=== PATIENT | male | born 1980 | race Caucasian/White ===

== ENCOUNTER 2016-08-20 16:47 | Emergency (ER) | payer SELFPAY ==
[~2016-08-20] VITALS: Ht 320 cm; Wt 86.2 kg
[~2016-08-20 16:47] MED LIST: ACET1TAB33 PO; ALBU18HF IH; AMOX875T PO; CYCL-331 PO; GABA800T2 PO; HYDR-971 PO; IBUP600T16 PO; IBUP800T19 PO; METH4TAB2 PO; PENI500T PO; PRED20TA PO
[2016-08-20 16:55] VITALS: BP 112/62
--- NOTE | 2016-08-20 17:00 | PHYS DOC ---
General Chief Complaint: INSECT BITE Stated Complaint: INSECT BITE Time Seen by MD: 16:57 Source: patient Exam Limitations: no limitations Problems: History of Present Illness Initial Comments Patient is a 35-year-old male who comes in the ED complaining of possible bug bite. Patient states that he noticed an itchy bump at his right flank last night. Today there was increased pain redness and swelling at the area, there is redness spreading jovon-laterally extending to mid clavicular. He denies actually seeing any insects he denies any tick bites no fever chills sweats or myalgias nausea vomiting or diarrhea. No pre-arrival treatment patient smokes cigarettes and has history of methamphetamine addiction but denies recent use. States his tetanus is up-to-date. Timing/Duration: 24 hours, getting worse Severity: moderate Modifying Factors: improves with cold therapy, worse with movement Associated Symptoms: rash Allergies: Coded Allergies: tramadol (Verified Allergy, Severe, SEIZURES, 12/17/15) diphenhydramine (Verified Allergy, Intermediate, 08/18/14) seizure Past Medical History Medical History: asthma, seizure, other (dental caries, methamphetamine addiction) Surgical History: noncontributory (hernia), other Family History Significant Family History: no pertinent family hx Social History Smoker: cigarettes Alcohol: occasionally Drugs: other (history of methamphetamine use) Review of Systems Constitutional: denies chills, denies diaphoresis, denies fever, denies malaise , denies weakness Respiratory: denies cough, denies shortness of breath Cardiovascular: denies chest pain, denies palpitations Gastrointestinal: denies abdominal pain, denies nausea, denies vomiting Musculoskeletal: denies back pain, denies joint swelling, denies neck pain Skin: see HPI Psychiatric/Neurological: denies headache, denies numbness, denies paresthesia Physical Exam General Appearance: no apparent distress Eyes: bilateral eye normal inspection, bilateral eye PERRL, bilateral eye EOMI Ear, Nose, Throat: hearing grossly normal, normal ENT inspection Neck: non-tender, supple Respiratory: normal breath sounds, no respiratory distress Cardiovascular: normal peripheral pulses, regular rate, rhythm Gastrointestinal: non tender, soft Back: no CVA tenderness, no vertebral tenderness Extremities: non-tender, normal inspection Neurologic/Psychiatric: marketing clerk II-XII nml as tested, no motor/sensory deficits, alert, normal mood/affect, oriented x 3 Skin: warm/dry (there is a 4 cm area of induration and erythema located at the right flank with a central scabbed ulceration approximately 0.5 cm. Red streaking extending anterolaterally to the midclavicular line there is associated warmth and tenderness there is no active bleeding or subcutaneous masses.) Orders, Labs, Meds I discussed the treatment plan as well as smoking cessation. Patient expressed agreement and understanding of the treatment plan. Departure Time of Disposition: 17:12 Disposition: HOME, SELF-CARE Diagnosis: Cellulitis, likely MRSA, tobaccoism Condition: GOOD Patient Instructions: Cellulitis, [id number], MRSA Overview, Smokeless Tobacco Use Additional Instructions: Stop smoking seek medical assistance if necessary. Off work through August 24 note given. Warm compresses to the affected area 20 minutes at a time 4-6 times daily. [id number] ibuprofen for baseline discomfort. Prescription: Bactrim DS 2010, Bactroban ointment, [place] 5 mg quantity 15 Take medications with food to avoid nausea and vomiting. Follow-up with your doctor next week for a wound check. Return to the ED with new or changing symptoms. PERFECTO LUX DO Aug 20, 2016 17:00
== END 2016-08-20 17:25 | disposition home or self-care (01) ==
LOC: ER 16:47
DX: L03.311 Cellulitis of abdominal wall (principal); J45.909 Unspecified asthma, uncomplicated; F19.20 Other psychoactive substance dependence, uncomplicated; F17.210 Nicotine dependence, cigarettes, uncomplicated; F15.10 Other stimulant abuse, uncomplicated; Z88.6 Allergy status to analgesic agent; Z88.8 Allergy status to other drugs, medicaments and biological substances
CPT/HCPCS: 99283

== ENCOUNTER 2016-10-03 09:49 | Emergency (ER) | payer SELFPAY ==
[~2016-10-03] VITALS: Ht 167.6 cm; Wt 83.9 kg
[2016-10-03 09:50] VITALS: BP 127/84
[2016-10-03] MEDS ORDERED: AMOX-260 PO (10:09)
--- NOTE | 2016-10-03 10:09 | PHYS DOC ---
Past History Past Medical History: Asthma, Seizure, Other Past Surgical History: Other Smoking: Cigarettes, Less than 1pk/day Alcohol Use: Occasionally Drug Use: None, Other Adult General Chief Complaint Chief Complaint: dental pain HPI HPI Patient is a 36-year-old male with a complaint of dental pain since yesterday. The patient has multiple bad teeth, he has had some dental work done in the past , but it's been a long time. He states he knows he needs to have several teeth pulled. He has had pain on the right mandibular teeth since yesterday. He was not able to sleep last night due to the pain. Denies fever or chills. He has pain under his jaw on the right also. Review of Systems Review of Systems Constitutional: Denies fever or chills [] HENT: As in history of present illness Allergies Allergies Allergies Coded Allergies Type Severity Reaction Last Updated Verified tramadol Allergy Severe SEIZURES 12/17/15 Yes diphenhydramine Allergy Intermediate 08/18/14 Yes Physical Exam Physical Exam Constitutional: Well developed, well nourished, no acute distress, non-toxic appearance. Alert, ambulatory, handling his secretions without difficulty, no abnormality of the voice. HENT: Normocephalic, atraumatic, bilateral external ears normal, nose normal. Lips and tongue are normal. Oropharynx moist. There are extensive areas of dental decay, fractured teeth, throughout the patient's mouth. There is some mild swelling and redness of the gingiva on the right mandibular area but no evidence of periapical abscess, no drainage. No swelling under the tongue. Eyes: conjunctiva normal, no discharge. [] Neck: Normal range of motion, no stridor. Mild tenderness to palpation submandibular and anterior cervical on the right without significant lymphadenopathy or palpable masses. Skin: Warm, dry, no erythema, no rash. [] Extremities: No tenderness, no cyanosis, no clubbing, ROM intact, no edema. [] Neurologic: Alert and oriented X 3, normal motor function, normal sensory function, no focal deficits noted. [] EKG EKG [] Radiology/Procedures Radiology/Procedures [] Course & Med Decision Making Course & Med Decision Making Pertinent Labs and Imaging studies reviewed. (See chart for details) 36-year-old male who has been seen multiple times in the past for dental pain presents with acute dental pain for 2 days. He has extensive dental caries and many fractured teeth but his right mandibular first and second molar appear to be the source of his main pain today, there is no evidence of periapical abscess or other acute abnormality. We will treat him with antibiotics and I urged him to see a dentist as soon as possible. [] Dragon Disclaimer Dragon Disclaimer This chart was dictated in whole or in part using Voice Recognition software in a busy, high-work load, and often noisy Emergency Department environment. It may contain unintended and wholly unrecognized errors or omissions. Departure Departure: Impression: Primary Impression: Pain due to dental caries Referrals: PCPMANE (PCP) Patient Instructions: Dental Abscess Additional Instructions: As we discussed, it is important to see a dentist as soon as possible because your teeth are only going to get worse and they need to be taken care of. Scripts Amoxicillin (AMOXICILLIN) 250 Mg Capsule 1 CAP PO TID, #30 CAP Prov: MEENAKSHI HICKMAN MD 10/03/16 MEENAKSHI HICKMAN MD Oct 03, 2016 10:09
== END 2016-10-03 10:10 | disposition home or self-care (01) ==
LOC: ER 09:49
DX: K02.9 Dental caries, unspecified (principal); J45.909 Unspecified asthma, uncomplicated; F17.210 Nicotine dependence, cigarettes, uncomplicated; Z88.6 Allergy status to analgesic agent; Z88.8 Allergy status to other drugs, medicaments and biological substances
CPT/HCPCS: 99282; 99283

== ENCOUNTER 2016-12-02 08:16 | Emergency (ER) | payer SELFPAY ==
[~2016-12-02] VITALS: Ht 167.6 cm; Wt 83.9 kg
[~2016-12-02 08:16] MED LIST changes: +AMOX-260 PO
[2016-12-02 09:31] VITALS: BP 106/76
== END 2016-12-02 09:38 | disposition home or self-care (01) ==
LOC: ER 08:16
DX: S50.311A Abrasion of right elbow, initial encounter (principal); Z53.21 Procedure and treatment not carried out due to patient leaving prior to being seen by health care provider; W01.0XXA Fall on same level from slipping, tripping and stumbling without subsequent striking against object, initial encounter; Y93.89 Activity, other specified; Y99.8 Other external cause status; Y92.89 Other specified places as the place of occurrence of the external cause

== ENCOUNTER 2017-07-14 02:09 | Emergency (ER) | payer SELFPAY ==
[~2017-07-14] VITALS: Ht 172.7 cm; Wt 113.4 kg
[2017-07-14 02:24] VITALS: BP 150/109
[2017-07-14] MEDS ORDERED: AMOX1TAB61 PO (02:29)
[2017-07-14] MEDS ORDERED: HYDR-971 PO (02:29)
[2017-07-14] MEDS ORDERED: KETOROLAC 30 MG/ML VIAL. IM ONE (02:45)
--- NOTE | 2017-07-14 02:52 | PHYS DOC ---
Past History Past Medical History: No Pertinent History Past Surgical History: Other Smoking: Cigarettes, Less than 1pk/day Alcohol Use: None Drug Use: None Adult General Chief Complaint Chief Complaint: DENTAL PROBLEM HPI HPI Patient is a 36-year-old male with dental pain severe dull right lower needs to have teeth pulled. No fever got worse tonight couldn't sleep came to ER. Review of Systems Review of Systems Constitutional: Denies fever or chills [] Current Medications Current Medications Current Medications Medications (Trade) Dose Ordered Sig/Ulises Start Time Stop Time Status Last Admin Dose Admin Ketorolac Tromethamine (Toradol) 30 mg 1X ONCE 07/14/17 02:45 07/14/17 02:46 Allergies Allergies Allergies Coded Allergies Type Severity Reaction Last Updated Verified tramadol Allergy Severe SEIZURES 12/17/15 Yes diphenhydramine Allergy Intermediate 08/18/14 Yes Physical Exam Physical Exam Constitutional: Well developed, well nourished, no acute distress, non-toxic appearance. [] HENT: Normocephalic, atraumatic, bilateral external ears normal, oropharynx moist, no oral exudates, nose normal. Poor dentition including multiple cracked one down teeth in the right lower mandible no periapical abscess no facial swelling no lymphadenopathy airways patent Neurologic: Alert and oriented X 3, normal motor function, normal sensory function, no focal deficits noted. [] Psychologic: Affect normal, judgement normal, mood normal. [] Current Patient Data Vital Signs Vital Signs Date Time Temp Pulse Resp B/P (MAP) Pulse Ox O2 Delivery O2 Flow Rate FiO2 07/14/17 02:24 98.3 72 18 96 Room Air Lab Results Temperature (Fahrenheit): * 98.3 degrees F (97.6-99.5) Patient Temperature * 98.3 degrees F (97.5-99.5) Temperature Source * Oral Blood Pressure Systolic * 150 mm Hg (100-140) H Blood Pressure Diastolic * 109 mm Hg (60-100) H Blood Pressure Mean * 123 mm Hg Blood Pressure Location * Right Arm Blood Pressure Source * Automatic Cuff Pulse Rate * 72 beats per minute (60-90) Pulse Assessment Method * Monitor Respiratory Rate * 18 breaths per minute (12-24) Oxygen Delivery Method * Room Air Bedside Pulse Oximetry * 96 % Treatment Prior to Arrival * No EKG EKG [] Radiology/Procedures Radiology/Procedures [] Course & Med Decision Making Course & Med Decision Making Pertinent Labs and Imaging studies reviewed. (See chart for details) []Dental pain I reviewed the case tracks he has gotten TWO RX NORCO in the last 6 weeks approximately. In the ER he received a Toradol IM injection I didn't precaution him about overuse of narcotics. I did tell him I would give him number for [facility] to get him through the next 1 days that he can see a dentist. He was given dental clinic information perception for Augmentin return impressions were reviewed no evidence of treatable abscess at this time. Dragon Disclaimer Dragon Disclaimer This electronic medical record was generated, in whole or in part, using a voice recognition dictation system. Departure Departure: Impression: Primary Impression: Poor dentition Disposition: 01 HOME, SELF-CARE Condition: IMPROVED Referrals: PCP,NO (PCP) Patient Instructions: Toothache-Brief Scripts Amoxicillin/Potassium Clav (AUGMENTIN 875-125 TABLET) 1 Each Tablet 1 TAB PO BID, #20 TAB Prov: ABDIRAHMAN GARRISON MD 07/14/17 Hydrocodone Bit/Acetaminophen (NORCO 5-325 TABLET) 1 Each Tablet 1 TAB PO BID, #4 TAB Prov: ABDIRAHMAN GARRISON MD 07/14/17 ABDIRAHMAN GARRISON MD Jul 14, 2017 02:52
== END 2017-07-14 03:05 | disposition home or self-care (01) ==
LOC: ER 02:09
DX: K08.89 Other specified disorders of teeth and supporting structures (principal); F17.210 Nicotine dependence, cigarettes, uncomplicated; Z88.6 Allergy status to analgesic agent; Z88.8 Allergy status to other drugs, medicaments and biological substances
CPT/HCPCS: 96372; 99283; J1885

== ENCOUNTER 2019-04-11 22:01 | Emergency (ER) | payer SELFPAY ==
[~2019-04-11] VITALS: Ht 172.7 cm; Wt 72.7 kg
[2019-04-11 22:01] VITALS: BP 132/80
[~2019-04-11 22:01] MED LIST changes: -ALBU18HF IH; +ALBU2.5V8 IH; +AMOX1TAB61 PO; -GABA800T2 PO; +GABA800T5 PO; +HYDR-3165 PO; -HYDR-971 PO
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
== END 2019-04-11 22:37 | disposition left against medical advice (07) ==
LOC: ER 22:01
DX: G89.29 Other chronic pain (principal); M54.6 Pain in thoracic spine; F17.210 Nicotine dependence, cigarettes, uncomplicated; Z88.8 Allergy status to other drugs, medicaments and biological substances
CPT/HCPCS: 99281

== ENCOUNTER 2019-10-25 20:08 | Emergency (ER) | payer SELFPAY ==
[~2019-10-25] VITALS: Ht 167.6 cm; Wt 84.1 kg
[2019-10-25 20:48] VITALS: BP 126/82
--- NOTE | 2019-10-25 23:00 | PHYS DOC ---
Past History Past Medical History: No Pertinent History Past Surgical History: Other Additional Past Surgical Histo: HERNIA REPAIR, DEVIATED SEPTUM Smoking: Cigarettes, Less than 1pk/day Alcohol Use: Occasionally Drug Use: Amphetamine General Adult EDM: Chief Complaint: BACK PAIN OR INJURY HPI: HPI: ".. I fell coming off porch yesterday.. hard on my butt.. my back has been killing... me...". It been two days.. and I still really hurt.. it seems to be a little more on my rt. flank area..." Patient is a 39 year old male who presents with above hx and complaints of back pain has been continuous since a slip and fall. Patient fell off landing on his gluteal area and mid back. Patient denies any problems with urination or defecation. No history of IV drug use. No history of fever or chills. No history of immunosuppression. No history of recent travel outside the [place] area. Pain in back is exacerbated by bending or twisting type movements. Pain does seem to localize more to the right at the level of T12 and L1. Does have some mild straight leg lift exacerbation pain on the right. No saddle loss. Review of Systems: Review of Systems: Constitutional: Denies fever or chills Eyes: Denies change in visual acuity HENT: Denies nasal congestion or sore throat Respiratory: Denies cough or shortness of breath Cardiovascular: Denies chest pain or edema GI: Denies abdominal pain, nausea, vomiting, bloody stools or diarrhea : Denies dysuria Musculoskeletal: Complains of persistent back pain since slip and fall 2 days ago Integument: Denies rash Neurologic: Denies headache, focal weakness or sensory changes Endocrine: Denies polyuria or polydipsia Lymphatic: Denies swollen glands Psychiatric: Denies depression or anxiety Heart Score: Risk Factors: Risk Factors: DM, Current or recent (<one month) smoker, HTN, HLP, family history of CAD, obesity. Risk Scores: Score 0 - 3: 2.5% MACE over next 6 weeks - Discharge Home Score 4 - 6: 20.3% MACE over next 6 weeks - Admit for Clinical Observation Score 7 - 10: 72.7% MACE over next 6 weeks - Early Invasive Strategies Family History: Family History: Noncontributory Current Medications: Current Meds: See nursing for home meds Allergies: Allergies: Allergies Coded Allergies Type Severity Reaction Last Updated Verified tramadol Allergy Severe SEIZURES 12/17/15 Yes diphenhydramine Allergy Intermediate 08/18/14 Yes Physical Exam: PE: Constitutional: Moderate acute distress, non-toxic appearance. [] HENT: Normocephalic, atraumatic, bilateral external ears normal, oropharynx moist, no oral exudates, nose normal. [] Eyes: PERRLA, EOMI, conjunctiva normal, no discharge. [] Neck: Normal range of motion, no tenderness, supple, no stridor. [] Cardiovascular:Heart rate regular rhythm, no murmur [] Lungs & Thorax: Bilateral breath sounds equal apex with scattered wheezes on auscultation [] Abdomen: Bowel sounds normal, soft, no tenderness, no masses, no pulsatile masses. No rebound pain. Old surgical scar. Circumcised male. No testicular tenderness. No groin sensation loss Skin: Warm, dry, no erythema, no rash. [] Back: Marked paraspinal lumbar tenderness, has right CVA tenderness. Has findings of contusion on mid back. Does have some midline tenderness at T12 and L1. Extremities: No tenderness, no cyanosis, no clubbing, ROM intact, no edema. Does have mild straight leg lift sciatica on right Neurologic: Alert and oriented X 3, moves all extremities on request, has distal sensory., no focal deficits noted. [] DTRs +2 patella and Achilles. No clonus appreciated. Psychologic: Affect anxious,, judgement normal, mood normal. [] Current Patient Data: Vital Signs: Vital Signs Date Time Temp Pulse Resp B/P (MAP) Pulse Ox O2 Delivery O2 Flow Rate FiO2 10/25/19 20:48 98.3 89 16 126/82 (97) 96 Room Air EKG: EKG: [] Radiology/Procedures: Radiology/Procedures: [][address] [address] IMAGING REPORT Signed PATIENT: SOCORRO KAMARA ACCOUNT: [id number] : 1980 LOCATION: ER AGE: 39 SEX: M EXAM STATUS: REG ER ORD. PHYSICIAN: PHAM PEDERSON MD REASON: Fall on steps yesterday PROCEDURE: CT LUMBAR SPINE WO CONTRAST PQRS Compliance Statement: One or more of the following individualized dose reduction techniques were utilized for this examination: 1. Automated exposure control 2. Adjustment of the mA and/or kV according to patient size 3. Use of iterative reconstruction technique CT LUMBAR SPINE WO CONTRAST Clinical Indication: Reason: Fall on steps yesterday / Spl. Instructions: / History: Comparison: None. TECHNIQUE: Helical CT imaging of the lumbar spine is performed without IV contrast. Findings: There is acute traumatic nondisplaced fracture of the right transverse process of T12, image 4. There is minimal grade 1 retrolisthesis of L3 on L4. The alignment is otherwise maintained. There is no disc space narrowing. There is minimal degenerative endplate spurring of L4 and L5. There is no acute vertebral body compression fracture. The sacroiliac joints are symmetric. There is no central canal stenosis or significant neural foraminal narrowing of the lumbar spine. There is small posterior disc bulge of L5/S1. Limited visualization of the retroperitoneum is unremarkable. IMPRESSION: There is acute traumatic nondisplaced fracture of the right T12 transverse process. Electronically signed by: Eder Jose MD (10/26/2019 2:10 AM) [facility] DICTATED AND SIGNED BY: EDER JOSE MD DATE: 10/26/19209 CC: PHAM PEDERSON MD; PCP,NO ~ Course & Med Decision Making: Course & Med Decision Making Pertinent Labs and Imaging studies reviewed. (See chart for details) Copy of CT clouded-reviewed by Dr. Elmore neurosurgery. Dr. Martinez's bar assistant Lili-advised Dr. Elmore felt this was a nonsurgical stable spinal fracture. Rest. Follow-up primary care. Ice packs as needed. If persistent pain schedule appointment with outpatient neurosurgery clinic. Have patient follow-up primary care. Patient take Tylenol and ibuprofen for pain for marked pain may take Vicoprofen up to 4 times a day. Take Flexeril 10 mg up to 3 times a day for marked muscle spasms. Use ice packs as needed. Allow adequate rest. Avoid excessive lifting more than 25 pounds. Must avoid constipation. Encourage patient stop smoking. Patient given Dr. Elmore-clinic phone number for follow-up if no improvement.-Patient may need further radiographic evaluation if persistent pain, MRI or even possible myelogram. However in all appearances should gradually have improvement with healing fracture. Impression: 1. Slip and fall 2. Back contusion 3. Nondisplaced acute traumatic fracture right transverse process at T12 4. Tobacco use 5. Urine drug screen positive for methamphetamine/amphetamine [] Dragon Disclaimer: Melanie Disclaimer: This electronic medical record was generated, in whole or in part, using a voice recognition dictation system. Departure Departure: Disposition: HOME/RESIDENCE PRIOR TO ADM Condition: STABLE Referrals: PCP,NO (PCP) Scripts Cyclobenzaprine Hcl (CYCLOBENZAPRINE HCL) 10 Mg Tablet 10 MG PO TID for spasms, #30 TAB Prov: PHAM PEDERSON MD 10/26/19 Hydrocodone/Ibuprofen (HYDROCODONE-IBUPROFEN 7.5-200 ) 1 Each Tablet 1 TAB PO PRN Q6HRS PRN for PAIN, #30 TAB 0 Refills Prov: PHAM PEDERSON MD 10/26/19 Justification of Admission: Justification of Admission: Justification of Admission Dx: N/A Dragon Disclaimer This chart was dictated in whole or in part using Voice Recognition software in a busy, high-work load, and often noisy Emergency Department environment. It may contain unintended and wholly unrecognized errors or omissions. PHAM PEDERSON MD Oct 25, 2019 23:00
[2019-10-25 23:19] LABS: BARBITURATES NEG (NEG); BENZODIAZEPINES NEG (NEG); CANNABINOIDS NEG (NEG); COCAINE NEG (NEG); METHADONE NEG (NEG); OPIATES NEG (NEG); PHENCYCLIDINE NEG (NEG)
[2019-10-25 23:25] LABS: AMPHETAMINE/METHAMPHETAMINE POS (NEG)
[2019-10-25] MEDS ORDERED: MORPHINE SULFATE 10 MG/ML SYRINGE. SQ ONE (23:45)
[2019-10-25] MEDS ORDERED: ORPHENADRINE CITRATE 60 MG/2 ML VIAL. IM ONE (23:45)
[2019-10-25] MEDS ORDERED: KETOROLAC 60 MG/2 ML VIAL. IM ONE (23:45)
[2019-10-26 00:01] LABS: BACTERIA,URINE 0 /HPF (0-FEW); BILIRUBIN,URINE NEG (NEG); CLARITY,URINE CLEAR; COLOR,URINE YELLOW; GLUCOSE,URINE NEG (NEG); NITRITE,URINE NEG (NEG); RBC,URINE 0 /HPF (0-2); UROBILINOGEN,URINE 0.2 mg/dL (0.2 mg/dL); WBC,URINE 0 /HPF (0-4)
--- NOTE | 2019-10-26 02:13 | RAD ---
PQRS Compliance Statement: One or more of the following individualized dose reduction techniques were utilized for this examination: 1. Automated exposure control 2. Adjustment of the mA and/or kV according to patient size 3. Use of iterative reconstruction technique CT LUMBAR SPINE WO CONTRAST Clinical Indication: Reason: Fall on steps yesterday / Spl. Instructions: / History: Comparison: None. TECHNIQUE: Helical CT imaging of the lumbar spine is performed without IV contrast. Findings: There is acute traumatic nondisplaced fracture of the right transverse process of T12, image 4. There is minimal grade 1 retrolisthesis of L3 on L4. The alignment is otherwise maintained. There is no disc space narrowing. There is minimal degenerative endplate spurring of L4 and L5. There is no acute vertebral body compression fracture. The sacroiliac joints are symmetric. There is no central canal stenosis or significant neural foraminal narrowing of the lumbar spine. There is small posterior disc bulge of L5/S1. Limited visualization of the retroperitoneum is unremarkable. IMPRESSION: There is acute traumatic nondisplaced fracture of the right T12 transverse process. Electronically signed by: Eder Jose MD (10/26/2019 2:10 AM) ET
[2019-10-26] MEDS ORDERED: HYDR-1179 PO (03:56)
[2019-10-26] MEDS ORDERED: CYCL-331 PO (03:56)
== END 2019-10-26 04:15 | disposition home or self-care (01) ==
LOC: ER 20:08
DX: S22.081A Stable burst fracture of T11-T12 vertebra, initial encounter for closed fracture (principal); F17.210 Nicotine dependence, cigarettes, uncomplicated; F15.10 Other stimulant abuse, uncomplicated; W01.0XXA Fall on same level from slipping, tripping and stumbling without subsequent striking against object, initial encounter; Y93.89 Activity, other specified; Y92.89 Other specified places as the place of occurrence of the external cause; Y99.8 Other external cause status
CPT/HCPCS: 36415; 72131; 80307; 81001; 96372; 99284; J1885; J2270; J2360

== ENCOUNTER 2021-06-08 18:14 | Emergency (ER) | payer SELFPAY ==
[~2021-06-08] VITALS: Ht 167.6 cm; Wt 84.1 kg
[~2021-06-08 18:14] MED LIST changes: -ACET1TAB33 PO; +ACET1TAB56 PO; -CYCL-331 PO; +CYCL10TA19 PO; +HYDR-1179 PO
--- NOTE | 2021-06-08 18:26 | PHYS DOC ---
Past History Past Medical History: No Pertinent History Additional Past Medical Histor: "back problems" Past Surgical History: Other Additional Past Surgical Histo: HERNIA REPAIR, DEVIATED SEPTUM Smoking: Cigarettes, Less than 1pk/day Alcohol Use: Occasionally Drug Use: Amphetamine Adult General Chief Complaint Chief Complaint: PSYCH EVALUATION HPI HPI Patient is a 40-year-old male who presents to the emergency department with a chief complaint of being homeless and heard, wanting something to eat and a place to sleep. Denies any recent travels, traumas, illness, fevers, chest pain, shortness of breath, abdominal pain, nausea, vomiting, diarrhea. Denies any numbness/weakness/tingling. Denies any trouble sitting, standing or walking. Denies any suicidal ideation, homicidal ideation, hallucinations. Denies any alcohol or drug use. Review of Systems Review of Systems Review of systems otherwise unremarkable except noted in HPI Allergies Allergies Allergies Coded Allergies Type Severity Reaction Last Updated Verified tramadol Allergy Severe SEIZURES 12/17/15 Yes diphenhydramine Allergy Intermediate 08/18/14 Yes Physical Exam Physical Exam Constitutional: Well developed, well nourished, no acute distress, non-toxic appearance. [] HENT: Normocephalic, atraumatic, oropharynx moist, no oral exudates, nose normal. [] Eyes: PERRLA, EOMI, conjunctiva normal, no discharge. [] Neck: Normal range of motion, no tenderness, supple, no stridor. [] Cardiovascular:Heart rate regular rhythm, no murmur [] Lungs & Thorax: Bilateral breath sounds clear to auscultation [] Abdomen: Bowel sounds normal, soft, no tenderness, no masses, no pulsatile masses. [] Skin: Warm, dry, no erythema, no rash. [] Back: No tenderness, no CVA tenderness. [] Extremities: No tenderness, no cyanosis, no clubbing, ROM intact, no edema. [] Neurologic: Alert and oriented X 3, able to sit, stand and walk without issue, no focal deficits noted. [] Psychologic: Affect normal, judgement normal, mood normal. No SI, HI or hallucinations. States he is homeless, and has not eaten today and is just tired and wants to lay down [] Current Patient Data Vital Signs Vital Signs Date Time Temp Pulse Resp B/P (MAP) Pulse Ox O2 Delivery O2 Flow Rate FiO2 4/26/22 18:15 98.3 95 18 123/68 (86) 95 Room Air EKG EKG [] Radiology/Procedures Radiology/Procedures [] Heart Score C/O Chest Pain: No Risk Factors: Risk Factors: DM, Current or recent (<one month) smoker, HTN, HLP, family history of CAD, obesity. Risk Scores: Risk Factors: DM, Current or recent (<one month) smoker, HTN, HLP, family history of CAD, obesity. Course & Med Decision Making Course & Med Decision Making Patient is a 40-year-old male who presents for homelessness, fatigue, wanting something to eat and a place to sleep Vital signs nonconcerning. Physical exam noted above. Given patient a meal and something to drink. Denied any need for pain or nausea medicine Got patient transportation to the [facility]. Gave community resource packet. Gave return precautions to the ED. Patient grateful, verbalized understanding and agreed with plan of discharge. Dragon Disclaimer Dragon Disclaimer This electronic medical record was generated, in whole or in part, using a voice recognition dictation system. Departure Departure: Impression: Primary Impression: Fatigue Additional Impression: Homelessness Disposition: HOME / SELF CARE / HOMELESS Condition: STABLE Referrals: PCP,NO (PCP) LOLI JUAREZ MD Patient Instructions: Fatigue Additional Instructions: Thank you for coming into the emergency department tonight and allowing us to take care of you. Please read all of the attached information carefully to go over things we discussed. You are also given a community resource packet with i nformation on help with housing, food, clothing and transportation. Please utilize this as we discussed and went over. They also have information on their on local free clinics as well. Please take advantage of this as soon as possible. Please come back with new or concerning symptoms as discussed. Problem Qualifiers CLOVER HOFF MD Jun 08, 2021 18:26
[2021-06-08 19:20] VITALS: BP 124/76
== END 2021-06-08 19:26 | disposition home or self-care (01) ==
LOC: ER 18:14
DX: R53.83 Other fatigue (principal); Z59.00 Homelessness unspecified; F17.210 Nicotine dependence, cigarettes, uncomplicated; Z88.8 Allergy status to other drugs, medicaments and biological substances
CPT/HCPCS: 99283